=== PATIENT | male | born 1950 | race Caucasian/White ===

== ENCOUNTER 2021-07-24 09:25 | Outpatient (CLI) | payer MEDICARE, SELFPAY ==
[2021-07-24 09:50] VITALS: BP 163/95; PULSE 71; RESP 20; TEMP 36.3; O2SAT 95
--- NOTE | 2021-07-24 10:49 | DI.RAD_ITS ---
Exam(s) XR PAIN CLINIC LUMBAR SP 2V EXAM: XR PAIN CLINIC LUMBAR SP 2V CLINICAL HISTORY: Dx: Lumbar Radiculopathy TECHNIQUE: 2D and realtime digital imaging was performed. COMPARISON: No exams were available for comparison FINDINGS: C-arm fluoroscopy was utilized by Dr. Florence during apparent lumbar epidural injection. Hard copy show injection via catheter at the L5-S1. IMPRESSION: RADIATION DOSE DELIVERED: dee Ortiz=16.0 mGy
--- NOTE | 2021-07-24 10:54 | PDOC.PAIN_ITS ---
Pain Clinic Procedure Note Procedure Note Procedure Note: CAUDAL EPIDURAL STEROID WITH CATHETER INJECTION PROCEDURE NOTE COMMENTS: I saw treated him at [facility] for many years. He has done exceedingly well with caudal ESIs. These are keeping him active and working. His pain VAS preprocedure is 6/10. DX: Lumbosacral radiculopathy Jamari Powers has been referred to the [facility] for lumbar epidural steroid injection. Patient was greeted by the nurse who verified the patient?s name and .? Patient was then taken to the fluoroscopy suite. The patient was interviewed and the medical record was reviewed.? There were no medical, pharmacologic, radiographic, or other structural contraindications to attempting fluoroscopically guided caudal epidural steroid injection. Risks and expected side effects as well as potential benefits of the procedure were reviewed and voiced concerns addressed.? The patient consent form was signed.? Standard time-out procedure was performed. The patient was placed in the prone position on the fluoroscopy table and automated blood pressure cuff, pulse oximeter, and 3 lead EKG was applied.? The skin entry point for entering/approaching the sacral hiatus was marked.? Following thorough chlorhexadine preparation of the skin and draping and 1% lidocaine infiltration of the skin entry point and subcutaneous tissues, a 17 gauge Touhy needle was placed under fluoroscopic guidance through the sacral hiatus.? Needle tip placement and depth were aided and confirmed by fluoroscopy. There was no paresthesia or return of blood or CSF through the needle. A 19G Arrow spinal catheter was threaded to the L5 height and 1 cc's of Omnipaque 240 was injected with clear epidural spread confirmed with fluoroscopy.? Aspiration was performed with no resulting blood or clear fluid. One 1 cc of depomedrol (80 mg/cc) was injected.? This was followed by 2 cc of 1% Lidocaine to flush the catheter.?There was not any unusual discomfort expressed.? The needle and catheter were removed together without difficulty. Vital signs were stable throughout the procedure and were as recorded in nursing records.? Follow up plans and appointments were discussed.? Post procedure instruction was given as documented in nursing records and having met discharge criteria and was discharged from the [facility]. Post-procedure VAS = 2/10 Jan Florence DO, MPH [facility]-Pain Management [facility]
[2021-07-24] MEDS: methylPREDNISolone ACETATE 80 MG/ML VIAL IJ (10:56)
[2021-07-24] MEDS: Omnipaque 240 MG/ML 50 ML BTL IJ (10:56)
[2021-07-24 11:03] VITALS: BP 138/78; PULSE 80; RESP 12; O2SAT 96
== END 2021-07-24 09:26 | disposition home or self-care (01) ==
LOC: PC 09:28
PROVIDERS: Visit Provider Preventive Medicine Occupational Medicine
DX: M54.17 Radiculopathy, lumbosacral region (principal)
CPT/HCPCS: 62323; 72100; J1040; Q9967

== ENCOUNTER 2021-12-05 11:20 | Outpatient (CLI) | payer MEDICARE, SELFPAY ==
--- NOTE | 2021-12-05 06:00 | DI.RAD_ITS ---
Exam(s) XR PAIN CLINIC LUMBAR SP 2V EXAM: XR PAIN CLINIC LUMBAR SP 2V CLINICAL HISTORY: Dx: Lumbar Radiculopathy TECHNIQUE: 2D and realtime digital imaging was performed. Radiologist not present. CONTRAST MATERIAL: None. COMPARISON: No exams were available for comparison FINDINGS: Fluoroscopy was provided for pain management therapy. Please refer to procedure report or details. Cumulative dose: Ka,r=8.51 mGy IMPRESSION: RADIATION DOSE DELIVERED:
[2021-12-05 11:44] VITALS: BP 120/78; PULSE 59; RESP 18; TEMP 36.9; O2SAT 100
--- NOTE | 2021-12-05 12:30 | PDOC.PAIN_ITS ---
Pain Clinic Procedure Note Procedure Note Procedure Note: CAUDAL EPIDURAL STEROID WITH CATHETER INJECTION PROCEDURE NOTE COMMENTS: He has done very well with this procedure in the past. It has allowed him to work and stay active. His pre-procedure pain VAS was 8/10. Dx: Lumbosacral radiculopathy Jamari Powers has been referred to the [facility] for lumbar epidural steroid injection. Patient was greeted by the nurse who verified the patient?s name and .? Ruth ent was then taken to the fluoroscopy suite. The patient was interviewed and the medical record was reviewed.? There were no medical, pharmacologic, radiographic, or other structural contraindications to attempting fluoroscopically guided caudal epidural steroid injection. Risks and expected side effects as well as potential benefits of the procedure were reviewed and voiced concerns addressed.? The patient consent form was signed.? Standard time-out procedure was performed. The patient was placed in the prone position on the fluoroscopy table and automated blood pressure cuff, pulse oximeter, and 3 lead EKG was applied.? The skin entry point for entering/approaching the sacral hiatus was marked.? Following thorough chlorhexadine preparation of the skin and draping and 1% lidocaine infiltration of the skin entry point and subcutaneous tissues, a 17 gauge Touhy needle was placed under fluoroscopic guidance through the sacral hiatus.? Needle tip placement and depth were aided and confirmed by fluoroscopy. There was no paresthesia or return of blood or CSF through the needle. A 19G Arrow spinal catheter was threaded to the L4 height and 1 cc's of Omnipaque 240 was injected with clear epidural spread confirmed with fluoroscopy.? Aspiration was performed with no resulting blood or clear fluid. One cc of depomedrol (80 mg/cc) was injected.? This was followed by 2 cc of 1% Lidocaine to flush the catheter.?There was not any unusual discomfort expressed.? The needle and catheter were removed together without difficulty. Vital signs were stable throughout the procedure and were as recorded in nursing records.? Follow up plans and appointments were discussed.? Post procedure instruction was given as documented in nursing records and having met discharge criteria and was discharged from the [facility]. Post-procedure pain VAS was 3/10. Jan Florence DO, MPH [facility]-Pain Management [facility]
[2021-12-05 12:33] VITALS: BP 139/67; PULSE 66; RESP 16; O2SAT 99
[2021-12-05] MEDS: Omnipaque 240 MG/ML 50 ML BTL IJ (12:41)
[2021-12-05] MEDS: methylPREDNISolone ACETATE 80 MG/ML VIAL IJ (12:41)
== END 2021-12-05 11:21 | disposition home or self-care (01) ==
LOC: PC 11:22
PROVIDERS: Visit Provider Preventive Medicine Occupational Medicine
DX: M54.17 Radiculopathy, lumbosacral region (principal)
CPT/HCPCS: 62323; 72100; J1040; Q9967

== ENCOUNTER 2022-04-03 11:27 | Outpatient (CLI) | payer MEDICARE, SELFPAY ==
--- NOTE | 2022-04-03 06:00 | DI.RAD_ITS ---
Exam(s) XR PAIN CLINIC LUMBAR SP 2V EXAM: XR PAIN CLINIC LUMBAR SP 2V CLINICAL HISTORY: Dx: Lumbar Radiculopathy TECHNIQUE: 2D and realtime digital imaging was performed. COMPARISON: No exams were available for comparison FINDINGS: C-arm fluoroscopy was utilized Dr. Florence during reported epidural injection. Hard copy shows injectio n at what appears to be L5-S1 level. IMPRESSION: RADIATION DOSE DELIVERED: dee Ortiz=12.48 mGy
[2022-04-03 12:24] VITALS: BP 130/88; PULSE 66; RESP 20; TEMP 36.8; O2SAT 97
--- NOTE | 2022-04-03 13:23 | PDOC.PAIN_ITS ---
Date of service: 04/03/22 Time of Service: 13:23 Pain Clinic Procedure Note Procedure Note Procedure Note: CAUDAL EPIDURAL STEROID WITH CATHETER INJECTION PROCEDURE NOTE COMMENTS: He has had this procedure numerous times in the past. He gets 3-4 months of relief each time and this allows him to continue working. Pre- procedure pain VAS was 6/10. Dx: Lumbosacral radiculopathy. Jamari Powers has been referred to the [facility] Management [facility] for lumbar epidural steroid injection. Patient was greeted by the nurse who verified the patient?s name and .? Patient was then taken to the fluoroscopy suite. The patient was interviewed and the medical record was reviewed.? There were no medical, pharmacologic, radiographic, or other structural contraindications to attempting fluoroscopically guided caudal epidural steroid injection. Risks and expected side effects as well as potential benefits of the procedure were reviewed and voiced concerns addressed.? The patient consent form was signed.? Standard time-out procedure was performed. The patient was placed in the prone position on the fluoroscopy table and automated blood pressure cuff, pulse oximeter, and 3 lead EKG was applied.? The skin entry point for entering/approaching the sacral hiatus was marked.? Following thorough chlorhexadine preparation of the skin and draping and 1% lidocaine infiltration of the skin entry point and subcutaneous tissues, a 17 gauge Touhy needle was placed under fluoroscopic guidance through the sacral hiatus.? Needle tip placement and depth were aided and confirmed by fluoroscopy. There was no paresthesia or return of blood or CSF through the needle. A 19G Arrow spinal catheter was threaded to the L5 height and 1 cc's of Omnipaque 240 was injected with clear epidural spread confirmed with fluoroscopy.? Aspiration was performed with no resulting blood or clear fluid. One cc of depomedrol (80 mg/cc) was injected.? This was followed by 2 cc of 1% Lidocaine to flush the catheter.?There was not any unusual discomfort expressed.? The needle and catheter were removed together without difficulty. Vital signs were stable throughout the procedure and were as recorded in nursing records.? Follow up plans and appointments were discussed.? Post procedure instruction was given as documented in nursing records and having met discharge criteria and was discharged from the [facility] Management [facility]. Post-procedure pain VAS = 3/10. Jan Florence DO, MPH [facility]-Pain Management [facility]
[2022-04-03] MEDS: methylPREDNISolone ACETATE 80 MG/ML VIAL IJ (13:25)
[2022-04-03] MEDS: Omnipaque 240 MG/ML 50 ML BTL IJ (13:25)
[2022-04-03 13:26] VITALS: BP 139/77; PULSE 65; RESP 15; O2SAT 98
== END 2022-04-03 11:28 | disposition home or self-care (01) ==
LOC: PC 11:27
PROVIDERS: Visit Provider Preventive Medicine Occupational Medicine
DX: M54.17 Radiculopathy, lumbosacral region (principal); M54.50 Low back pain, unspecified; M47.817 Spondylosis without myelopathy or radiculopathy, lumbosacral region
CPT/HCPCS: 62323; 72100; J1040; Q9967

== ENCOUNTER 2022-08-21 09:12 | Outpatient (CLI) | payer MEDICARE, SELFPAY ==
[2022-08-21 09:23] VITALS: BP 147/83; PULSE 63; RESP 20; TEMP 36.4; O2SAT 98
--- NOTE | 2022-08-21 10:01 | DI.RAD_ITS ---
Exam(s) XR PAIN CLINIC LUMBAR SP 2V EXAM: XR PAIN CLINIC LUMBAR SP 2V CLINICAL HISTORY: DX: Lumbar Radiculopathy TECHNIQUE: 2D and realtime digital imaging was performed. Radiologist not present. CONTRAST MATERIAL: None. COMPARISON: No exams were available for comparison FINDINGS: Fluoroscopy was provided for pain management therapy. Please refer to procedure report or details. Radiation Exposure Index: Ka,r=12.95 mGy IMPRESSION: As above. RADIATION DOSE DELIVERED:
--- NOTE | 2022-08-21 10:02 | PDOC.PAIN_ITS ---
Date of service: 08/21/22 Time of Service: 10:13 Pain Clinic Procedure Note Procedure Note Procedure Note: CAUDAL EPIDURAL STEROID WITH CATHETER INJECTION PROCEDURE NOTE COMMENTS: He had >70% pain relief with his last caudal KYLE from March 2022. Pre-procedure pain VAS was 7/10 Dx: Lumbosacral radiculopathy Jamari Powers has been referred to the [facility] for lumbar epidural steroid injection. Patient was greeted by the nurse who verified the patient?s name and .? Patient was then taken to the fluoroscopy suite. The patient was interviewed and the medical record was reviewed.? There were no medical, pharmacologic, radiographic, or other structural contraindications to attempting fluoroscopically guided caudal epidural steroid injection. Risks and expected side effects as well as potential benefits of the procedure were reviewed and voiced concerns addressed.? The patient consent form was signed.? Standard time-out procedure was performed. The patient was placed in the prone position on the fluoroscopy table and automated blood pressure cuff, pulse oximeter, and 3 lead EKG was applied.? The skin entry point for entering/approaching the sacral hiatus was marked.? Following thorough chlorhexadine preparation of the skin and draping and 1% lidocaine infiltration of the skin entry point and subcutaneous tissues, a 17 gauge Touhy needle was placed under fluoroscopic guidance through the sacral hiatus.? Needle tip placement and depth were aided and confirmed by fluoroscopy. There was no paresthesia or return of blood or CSF through the needle. A 19G Arrow spinal catheter was threaded to the L5 height and 1 cc's of Omnipaque 240 was injected with clear epidural spread confirmed with fluoroscopy.? Aspiration was performed with no resulting blood or clear fluid. One cc of depomedrol (80 mg/cc) was injected.? This was followed by 2 cc of 1% Lidocaine to flush the catheter.?There was not any unusual discomfort expressed.? The needle and catheter were removed together without difficulty. Vital signs were stable throughout the procedure and were as recorded in nursing records.? Follow up plans and appointments were discussed.? Post procedure instruction was given as documented in nursing records and having met discharge criteria and was discharged from the [facility]. Post-procedure pain VAS was 3/10. If he obtains at least 50% pain relief and/or 50% functional improvement for 3 months, he can repeat this procedure. This procedure can be completed up to 4 times per 12 months. Jan Florence DO, MPH [facility]-Pain Management [facility] for Pain Management
[2022-08-21 10:04] VITALS: BP 154/80; PULSE 67; RESP 17; O2SAT 100
[2022-08-21] MEDS: methylPREDNISolone ACETATE 80 MG/ML VIAL IJ (10:23)
[2022-08-21] MEDS: Omnipaque 240 MG/ML 50 ML BTL IJ (10:24)
== END 2022-08-21 09:13 | disposition home or self-care (01) ==
LOC: PC 09:12
PROVIDERS: Visit Provider Preventive Medicine Occupational Medicine
DX: M54.17 Radiculopathy, lumbosacral region (principal); M54.50 Low back pain, unspecified
CPT/HCPCS: 62323; 72100; J1040; Q9967

== ENCOUNTER 2022-12-29 10:41 | Outpatient (CLI) | payer MEDICARE, SELFPAY ==
[2022-12-29 10:55] VITALS: BP 146/78; PULSE 52; RESP 20; TEMP 36.4; O2SAT 96
--- NOTE | 2022-12-29 11:41 | DI.RAD_ITS ---
Exam(s) XR PAIN CLINIC LUMBAR SP 2V EXAM: XR PAIN CLINIC LUMBAR SP 2V CLINICAL HISTORY: DX: Lumbar Radiculopathy. TECHNIQUE: Fluoroscopy was provided for the referring physician for guidance with performing pain cl inic injection procedure. COMPARISON: No exams were available for comparison FINDINGS: Please see procedure note for details. Fluoro time: 12.32 seconds RADIATION DOSE DELIVERED: Ka,r=38.3 mGy
[2022-12-29 11:42] VITALS: BP 153/73; PULSE 66; RESP 15; O2SAT 97
[2022-12-29] MEDS: Omnipaque 240 MG/ML 50 ML BTL IJ (11:42)
[2022-12-29] MEDS: methylPREDNISolone ACETATE 80 MG/ML VIAL IJ (11:42)
--- NOTE | 2022-12-29 13:58 | PDOC.PAIN_ITS ---
Date of service: 12/29/22 Time of Service: 13:58 Pain Managment Procedure Note Procedure Note Procedure Note: PROCEDURE NOTE CAUDAL EPIDURAL STEROID INJECTION Date of Service: December 29, 2022 Patient:Jamari Mckeon? Provider:? Blair Florence DO, MPH Jamari Powers has been referred to the [facility] for caudal epidural steroid injection.? Pre-operative diagnosis: Lumbosacral Radiculopathy Post-operative diagnosis: Same Pre-Procedure Pain: VAS= 7/10. COMMENTS: He had >50% pain relief for >3 months with his last caudal KYLE on 08/21/2022. Maydawas interviewed and the medical record was reviewed.? There were no medical, pharmacologic, radiographic or other structural contraindications to attempting fluoroscopically guided epidural steroid injection.? Risks and expected side effects as well as potential benefit of the procedure were reviewed with Mayda, and the patient's voiced concerns were addressed.? The printed consent form was signed.? Standard time-out procedure was performed. Mayda was placed in the prone position on the fluoroscopy table and automated blood pressure cuff and pulse oximeter applied.? The skin entry point for entering/approaching the epidural space by a caudal approach through the sacral hiatus ed identified with surgical skin marking.? Following thorough chlorhexidine preparation of the skin and draping and 1% lidocaine infiltration of the skin entry point and subcutaneous tissues, a 17 gauge Touhy needle was placed under fluoroscopic guidance? into the epidural space. Needle tip placement and depth were aided and confirmed by fluoroscopy in the lateral and AP position. There was no paresthesia or return of blood or CSF through the needle. 1 cc of Omnipaque 240 was injected with clear epidural spread confirmed with fluoroscopy. An Arrow 19G radio-opaque epidural catheter was advanced into the epidural space to the L5-S1 level and 2 cc of Omnipaque 240 was injected with clear epidural spread. 80 mg of Depo-Medrol was? injected. There was no unusual discomfort expressed by Jamari. The needle and catheter were then flushed with 1 cc of 1% Lidocaine and they were removed together without difficulty (49 cc of Omnipaque was wasted). Jamari was observed and was without hemodynamic, neurologic, or allergic reactions.? Fluoroscopic images were digitally archived. Jamari's vital signs were stable throughout the procedure and were as recorded in the docflowsheet by the nursing staff.? If given, dosages of intravenous drugs for anxiolysis and analgesia were documented in MAR. Follow up plans and appointments were discussed with Jamari.? Post procedure instruction was given as documented in nursing documentation and having met discharge criteria, Jamari was discharged from the [facility]. ? COMMENTS: No apparent complications.? Post-procedure pain: VAS= 0/10. If the patient receives at least 50% improvement in pain and/or function for at least 3 months, this procedure can be repeated. I personally completed the entire procedure. BLAIR FLORENCE DO, MPH [facility] - Subspecialty board certification in Pain Medicine [facility]-[place] [facility]
== END 2022-12-29 10:42 | disposition home or self-care (01) ==
LOC: PC 10:42
PROVIDERS: Visit Provider Preventive Medicine Occupational Medicine
DX: M54.50 Low back pain, unspecified (principal); M54.17 Radiculopathy, lumbosacral region
CPT/HCPCS: 62323; 72100; J1040; Q9967

== ENCOUNTER → 2022-12-29 13:46 | Outpatient (CLI) | payer MEDICARE, SELFPAY ==
--- NOTE | 2022-12-29 12:31 | DI.RAD_ITS ---
Exam(s) XR CERVICAL SPINE COMP 4-5V EXAM: XR CERVICAL SPINE COMP 4-5V CLINICAL HISTORY: NECK PAIN, CERVICALGIA-M54.2. TECHNIQUE: 2D digital imaging was performed. COMPARISON: No exams were available for comparison FINDINGS: BONES: No fracture or destructive lesion. Vertebral bodies heights are maintained. Facet degenerat clarence changes. Right neural foramen suboptimally profiled. Mild multilevel neural foraminal narrowing suspected. DISKS: The C2 3 disc space is maintained. There is moderate to severe narrowing of the C3-4 through C5-6 disc spaces. Moderate endplate osteophytes. Severe narrowing at the C6-7 disc space. Prominen t endplate osteophytes. ALIGNMENT: Cervical spinal alignment is within normal limits. The odontoid and atlantoaxial articulat ions are normal. SOFT TISSUE: Airway normal. The lung apices are clear. IMPRESSION: Degenerative changes, greatest at C6-7. DATA REPOSITORY: RADIATION DOSE DELIVERED:
== END ==
PROVIDERS: Visit Provider Preventive Medicine Occupational Medicine
DX: M47.12 Other spondylosis with myelopathy, cervical region (principal)
CPT/HCPCS: 72050

== ENCOUNTER 2023-04-15 10:39 | Outpatient (CLI) | payer MEDICARE, SELFPAY ==
--- NOTE | 2023-04-15 06:00 | DI.RAD_ITS ---
Exam(s) XR PAIN CLINIC LUMBAR SP 2V EXAM: XR PAIN CLINIC LUMBAR SP 2V CLINICAL HISTORY: Dx: Lumbar Radiculopathy TECHNIQUE: 2D and realtime digital imaging was performed. CONTRAST MATERIAL: Refer to procedure report. COMPARISON: No exams were available for comparison FINDINGS: Fluoroscopy was provided for Dr. Florence during the performance of a caudal epidural steroid injection. Please refer to the procedure report for complete details. Ka,r=9.03 mGy IMPRESSION:
[2023-04-15 11:00] VITALS: BP 148/77; PULSE 56; RESP 14; TEMP 36.7; O2SAT 94
--- NOTE | 2023-04-15 11:43 | PDOC.PAIN_ITS ---
Date of service: 04/15/23 Time of Service: 11:43 Pain Managment Procedure Note Procedure Note Procedure Note: PROCEDURE NOTE CAUDAL EPIDURAL STEROID INJECTION Date of Service: April 15, 2023 Patient:Jamari Mckeon? Provider:? Blair Florence DO, MPH Jamari Powers has been referred to the [facility] for caudal epidural steroid injection.? Pre-operative diagnosis: Lumbosacral Radiculopathy Post-operative diagnosis: Same Pre-Procedure Pain: VAS= 8/10. COMMENTS: He had >3 months of relief with his last caudal KYLE in December 2022. Maydawas interviewed and the medical record was reviewed.? There were no medical, pharmacologic, radiographic or other structural contraindications to attempting fluoroscopically guided epidural steroid injection.? Risks and expected side effects as well as potential benefit of the procedure were reviewed with Mayda, and the patient's voiced concerns were addressed.? The printed consent form was signed.? Standard time-out procedure was performed. Mayda was placed in the prone position on the fluoroscopy table and automated blood pressure cuff and pulse oximeter applied.? The skin entry point for entering/approaching the epidural space by a caudal approach through the sacral hiatus ed identified with surgical skin marking.? Following thorough chlorhexidine preparation of the skin and draping and 1% lidocaine infiltration of the skin entry point and subcutaneous tissues, a 17 gauge Touhy needle was placed under fluoroscopic guidance? into the epidural space. Needle tip placement and depth were aided and confirmed by fluoroscopy in the lateral and AP position. There was no paresthesia or return of blood or CSF through the needle. 1 cc of Omnipaque 240 was injected with clear epidural spread confirmed with fluoroscopy. An Arrow 19G radio-opaque epidural catheter was advanced into the epidural space to the L5-S1 level and 2 cc of Omnipaque 240 was injected with clear epidural spread. 80 mg of Depo-Medrol was? injected. There was no unusual discomfort expressed by Jamari. The needle and catheter were then flushed with 1 cc of 1% Lidocaine and they were removed together without difficulty (49 cc of Omnipaque was wasted). Jamari was observed and was without hemodynamic, neurologic, or allergic reactions.? Fluoroscopic images were digitally archived. Jamari's vital signs were stable throughout the procedure and were as recorded in the docflowsheet by the nursing staff.? If given, dosages of intravenous drugs for anxiolysis and analgesia were documented in MAR. Follow up plans and appointments were discussed with Jamari.? Post procedure instruction was given as documented in nursing documentation and having met discharge criteria, Jamari was discharged from the [facility]. ? COMMENTS: No apparent complications.? Post-procedure pain: VAS= 0/10. If the patient receives at least 50% improvement in pain and/or function for at least 3 months, this procedure can be repeated. I personally completed the entire procedure. BLAIR FLORENCE DO, MPH [employer] - Subspecialty board certification in Pain Medicine [facility]-Center for Pain Management
[2023-04-15 12:00] VITALS: BP 136/93; PULSE 61; RESP 20; O2SAT 100
[2023-04-15] MEDS: methylPREDNISolone ACETATE 80 MG/ML VIAL IJ (12:06)
[2023-04-15] MEDS: Omnipaque 240 MG/ML 50 ML BTL IJ (12:07)
== END 2023-04-15 10:40 | disposition home or self-care (01) ==
LOC: PC 10:48
PROVIDERS: Visit Provider Preventive Medicine Occupational Medicine
DX: M54.50 Low back pain, unspecified (principal); M47.817 Spondylosis without myelopathy or radiculopathy, lumbosacral region
CPT/HCPCS: 00123; 62323; 72100; J1040; Q9967

== ENCOUNTER 2023-08-12 11:26 | Outpatient (CLI) | payer MEDICARE, SELFPAY ==
[2023-08-12 12:06] VITALS: BP 144/88; PULSE 57; RESP 20; TEMP 36.6; O2SAT 97
--- NOTE | 2023-08-12 12:52 | PDOC.PAIN_ITS ---
Date of service: 08/12/23 Time of Service: 12:52 Pain Managment Procedure Note Procedure Note Procedure Note: PROCEDURE NOTE CAUDAL EPIDURAL STEROID INJECTION Date of Service: August 12, 2023 Patient:Jamari Mckeon? Provider:? Blair Florence DO, MPH Jamari Powers has been referred to the Pain Management Center for caudal epidural steroid injection.? Pre-operative diagnosis: Lumbosacral Radiculopathy Post-operative diagnosis: Same Pre-Procedure Pain: VAS= 7/10. COMMENTS: He had >3 months of >50% pain relief with his last caudal KYLE (04/15/23). Maydawas interviewed and the medical record was reviewed.? There were no medical, pharmacologic, radiographic or other structural contraindications to attempting fluoroscopically guided epidural steroid injection.? Risks and expected side effects as well as potential benefit of the procedure were reviewed with Mayda, and the patient's voiced concerns were addressed.? The printed consent form was signed.? Standard time-out procedure was performed. Mayda was placed in the prone position on the fluoroscopy table and automated blood pressure cuff and pulse oximeter applied.? The skin entry point for entering/approaching the epidural space by a caudal approach through the sacral hiatus ed identified with surgical skin marking.? Following thorough chlorhexidine preparation of the skin and draping and 1% lidocaine infiltration of the skin entry point and subcutaneous tissues, a 17 gauge Touhy needle was placed under fluoroscopic guidance? into the epidural space. Needle tip placement and depth were aided and confirmed by fluoroscopy in the lateral and AP position. There was no paresthesia or return of blood or CSF through the needle. 1 cc of Omnipaque 240 was injected with clear epidural spread confirmed with fluoroscopy. An Arrow 19G radio-opaque epidural catheter was advanced into the epidural space to the L5-S1 level and 2 cc of Omnipaque 240 was injected with clear epidural spread. 80 mg of Depo-Medrol was? injected. There was no unusual discomfort expressed by Jamari. The needle and catheter were then flushed with 1 cc of 1% Lidocaine and they were removed together without difficulty (49 cc of Omnipaque was wasted). Jamari was observed and was without hemodynamic, neurologic, or allergic reactions.? Fluoroscopic images were digitally archived. Jamari's vital signs were stable throughout the procedure and were as recorded in the docflowsheet by the nursing staff.? If given, dosages of intravenous drugs for anxiolysis and analgesia were documented in MAR. Follow up plans and appointments were discussed with Jamari.? Post procedure instruction was given as documented in nursing documentation and having met discharge criteria, Jamari was discharged from the [facility]. ? COMMENTS: No apparent complications.? Post-procedure pain: VAS= 0/10. If the patient receives at least 50% improvement in pain and/or function for at least 3 months, this procedure can be repeated. I personally completed the entire procedure. BLAIR FLORENCE DO, MPH [employer] - Subspecialty board certification in Pain Medicine [facility]
--- NOTE | 2023-08-12 12:55 | DI.RAD_ITS ---
Exam(s) XR PAIN CLINIC LUMBAR SP 2V EXAM: XR PAIN CLINIC LUMBAR SP 2V CLINICAL HISTORY: DX: Lumbar radiculopathy. TECHNIQUE: Fluoroscopy was provided for the referring physician for guidance with performing pain cl inic injection procedure. COMPARISON: No exams were available for comparison FINDINGS: Please see procedure note for details. Fluoro time: 46.5 seconds RADIATION DOSE DELIVERED: Ka,r=19.38 mGy
[2023-08-12 12:56] VITALS: BP 144/90; PULSE 58; RESP 19; O2SAT 98
[2023-08-12] MEDS: Omnipaque 240 MG/ML 50 ML BTL IJ (12:57)
[2023-08-12] MEDS: Epidural Tray 1 EACH MC (12:57)
[2023-08-12] MEDS: methylPREDNISolone ACETATE 80 MG/ML VIAL IJ (12:58)
== END 2023-08-12 11:27 | disposition home or self-care (01) ==
LOC: PC 11:27
PROVIDERS: Visit Provider Preventive Medicine Occupational Medicine
DX: M54.50 Low back pain, unspecified (principal); M54.17 Radiculopathy, lumbosacral region
CPT/HCPCS: 00123; 62323; 72100; J1040; Q9967

== ENCOUNTER 2023-12-09 10:16 | Outpatient (CLI) | payer MEDICARE, SELFPAY ==
[2023-12-09 10:16] VITALS: BP 139/81; PULSE 59; RESP 20; TEMP 36.7; O2SAT 97
[2023-12-09 11:02] VITALS: PULSE 56; RESP 16; O2SAT 98
[2023-12-09 11:10] VITALS: PULSE 53; RESP 13; O2SAT 100
[2023-12-09 11:13] VITALS: BP 133/72; PULSE 52; O2SAT 99
--- NOTE | 2023-12-09 11:14 | DI.RAD_ITS ---
Exam(s) XR PAIN CLINIC LUMBAR SP 2V EXAM: XR PAIN CLINIC LUMBAR SP 2V CLINICAL HISTORY: Lumbar Radiculopathy TECHNIQUE: 2D and realtime digital imaging was performed. CONTRAST MATERIAL: Refer to procedure report. COMPARISON: No exams were available for comparison FINDINGS: Fluoroscopy was provided for Dr. Florence during the performance of a caudal epidural steroid injection. Please refer to the procedure report for complete details. Ka,r=11.7 mGy IMPRESSION: RADIATION DOSE DELIVERED: 0.0 0.0 0
[2023-12-09] MEDS: Nerve Block Tray 1 EACH MC ×2 (11:20→11:22)
[2023-12-09] MEDS: Omnipaque 240 MG/ML 50 ML BTL IJ (11:21)
[2023-12-09] MEDS: methylPREDNISolone ACETATE 80 MG/ML VIAL IJ (11:21)
--- NOTE | 2023-12-10 08:47 | PDOC.PAIN ---
Date of service: 12/09/23 Time of Service: 11:30 Pain Managment Procedure Note Procedure Note Procedure Note: PROCEDURE NOTE CAUDAL EPIDURAL STEROID INJECTION Date of Service: December 09, 2023 Patient:Jamari Mckeon? Provider:? Blair Florence DO, MPH Jamari Powers has been [facility] for caudal epidural steroid injection.? Pre-operative diagnosis: Lumbosacral Radiculopathy Post-operative diagnosis: Same Pre-Procedure Pain: VAS= 7/10. COMMENTS: Had had >3 months of 50% pain improvement with his last caudal KYLE on 08/12/23 Maydawas interviewed and the medical record was reviewed.? There were no medical, pharmacologic, radiographic or other structural contraindications to attempting fluoroscopically guided epidural steroid injection.? Risks and expected side effects as well as potential benefit of the procedure were reviewed with Mayda, and the patient's voiced concerns were addressed.? The printed consent form was signed.? Standard time-out procedure was performed. Mayda was placed in the prone position on the fluoroscopy table and automated blood pressure cuff and pulse oximeter applied.? The skin entry point for entering/approaching the epidural space by a caudal approach through the sacral hiatus ed identified with surgical skin marking.? Following thorough chlorhexidine preparation of the skin and draping and 1% lidocaine infiltration of the skin entry point and subcutaneous tissues, a 17 gauge Touhy needle was placed under fluoroscopic guidance? into the epidural space. Needle tip placement and depth were aided and confirmed by fluoroscopy in the lateral and AP position. There was no paresthesia or return of blood or CSF through the needle. 1 cc of Omnipaque 240 was injected with clear epidural spread confirmed with fluoroscopy. An Arrow 19G radio-opaque epidural catheter was advanced into the epidural space to the L4 level and 2 cc of Omnipaque 240 was injected with clear epidural spread. 80 mg of Depo-Medrol was? injected. There was no unusual discomfort expressed by Jamari. The needle and catheter were then flushed with 1 cc of 1% Lidocaine and they were removed together without difficulty (49 cc of Omnipaque was wasted). Jamari was observed and was without hemodynamic, neurologic, or allergic reactions.? Fluoroscopic images were digitally archived. Jamari's vital signs were stable throughout the procedure and were as recorded in the docflowsheet by the nursing staff.? If given, dosages of intravenous drugs for anxiolysis and analgesia were documented in MAR. Follow up plans and appointments were discussed with Jamari.? Post procedure instruction was given as documented in nursing documentation and having met discharge criteria, [facility]. ? COMMENTS: No apparent complications.? Post-procedure pain: VAS= 1/10. If the patient receives at least 50% improvement in pain and/or function for at least 3 months, this procedure can be repeated. I personally completed the entire procedure. BLAIR FLORENCE DO, MPH [employer] - Subspecialty board certification in Pain Medicine [facility]
== END 2023-12-09 10:17 | disposition home or self-care (01) ==
LOC: PC 10:17
PROVIDERS: PCP Obstetrics & Gynecology Reproductive Endocrinology; Visit Provider Preventive Medicine Occupational Medicine
DX: M54.17 Radiculopathy, lumbosacral region (principal); M54.50 Low back pain, unspecified
CPT/HCPCS: 62323; 72100; J1010; Q9967

== ENCOUNTER 2024-06-23 11:31 | Outpatient (CLI) | payer MEDICARE, SELFPAY ==
[2024-06-23 11:39] VITALS: BP 137/65; PULSE 59; RESP 20; TEMP 36.7; O2SAT 100
[2024-06-23 12:06] VITALS: PULSE 60; PULSE 62; O2SAT 96
[2024-06-23 12:08] VITALS: BP 141/59; PULSE 55; PULSE 59; RESP 18; O2SAT 95
[2024-06-23 12:10] VITALS: PULSE 58; RESP 16; O2SAT 97
[2024-06-23 12:15] VITALS: BP 132/57; PULSE 54; PULSE 57; RESP 17; O2SAT 96
[2024-06-23 12:20] VITALS: PULSE 56; PULSE 57; RESP 21; O2SAT 94
--- NOTE | 2024-06-23 12:24 | PDOC.PAIN_ITS ---
Date of service: 06/23/24 Time of Service: 12:24 Pain Managment Procedure Note Procedure Note Procedure Note: PROCEDURE NOTE CAUDAL EPIDURAL STEROID INJECTION Date of Service: June 23, 2024 Patient:Jamari Mckeon? Provider:? Blair Folrence DO, MPH Jamari Powers has been referred to the [facility] for caudal epidural steroid injection.? Pre-operative diagnosis: Lumbosacral Radiculopathy, ICD-10 M54.17 Post-operative diagnosis: Same Pre-Procedure Pain: VAS= 10/10. COMMENTS: He had >4 months of >50% pain relief with his last caudal KYLE. He was hospitalized for abdominal issues in the fall and he has gotten a lot better from that here over the past 6 weeks. Maydawas interviewed and the medical record was reviewed.? There were no medical, pharmacologic, radiographic or other structural contraindications to attempting fluoroscopically guided epidural steroid injection.? Risks and expected side effects as well as potential benefit of the procedure were reviewed with Mayda, and the patient's voiced concerns were addressed.? The printed consent form was signed.? Standard time-out procedure was performed. Mayda was placed in the prone position on the fluoroscopy table and automated blood pressure cuff and pulse oximeter applied.? The skin entry point for entering/approaching the epidural space by a caudal approach through the sacral hiatus ed identified with surgical skin marking.? Following thorough chlorhexidine preparation of the skin and draping and 1% lidocaine infiltration of the skin entry point and subcutaneous tissues, a 17 gauge Touhy needle was placed under fluoroscopic guidance? into the epidural space. Needle tip placement and depth were aided and confirmed by fluoroscopy in the lateral and AP position. There was no paresthesia or return of blood or CSF through the needle. 1 cc of Omnipaque 240 was injected with clear epidural spread confirmed with fluoroscopy. An Arrow 19G radio-opaque epidural catheter was advanced into the epidural space to the L4-L5 level on the left and 2 cc of Omnipaque 240 was injected with clear epidural spread. 80 mg of Depo-Medrol was? injected. There was no unusual discomfort expressed by Jamari. The needle and catheter were then flushed with 1 cc of 1% Lidocaine and they were removed together without difficulty (49 cc of Omnipaque was wasted). Jamari was observed and was without hemodynamic, neurologic, or allergic reactions.? Fluoroscopic images were digitally archived. Jamari's vital signs were stable throughout the procedure and were as recorded in the docflowsheet by the nursing staff.? If given, dosages of intravenous drugs for anxiolysis and analgesia were documented in MAR. Follow up plans and appointments were discussed with Jamari.? Post procedure instruction was given as documented in nursing documentation and having met discharge criteria, Jamari was [facility] from the [facility]. ? COMMENTS: No apparent complications.? Post-procedure pain: VAS= 0/10. If the patient receives at least 50% improvement in pain and/or function for at least 3 months, this procedure can be repeated. I personally completed the entire procedure. BLAIR FLORENCE DO, MPH [employer] - Subspecialty board certification in Pain Medicine [facility]
--- NOTE | 2024-06-23 12:27 | DI.RAD_ITS ---
Exam(s) XR PAIN CLINIC LUMBAR SP 2V EXAM: XR PAIN CLINIC LUMBAR SP 2V CLINICAL HISTORY: Dx: Lumbar Radiculopathy TECHNIQUE: 2D and realtime digital imaging was performed. CONTRAST MATERIAL: Refer to procedure report. COMPARISON: No exams were available for comparison FINDINGS: Fluoroscopy was provided for Dr. Florence during the performance of a caudal epidural steroid injection. Please refer to the procedure report for complete details. Ka,r=7.10 mGy IMPRESSION: RADIATION DOSE DELIVERED: 0.0 0.0 0
[2024-06-23] MEDS: Nerve Block Tray 1 EACH MC (12:34)
[2024-06-23] MEDS: Omnipaque 240 MG/ML 50 ML BTL IJ (12:35)
[2024-06-23] MEDS: methylPREDNISolone ACETATE 80 MG/ML VIAL IJ (12:35)
== END 2024-06-23 11:32 | disposition home or self-care (01) ==
LOC: PC 11:32
PROVIDERS: PCP Obstetrics & Gynecology Reproductive Endocrinology; Visit Provider Preventive Medicine Occupational Medicine
DX: M54.50 Low back pain, unspecified (principal); M54.17 Radiculopathy, lumbosacral region
CPT/HCPCS: 62323; 72100; J1010; Q9967

== ENCOUNTER 2024-10-06 13:04 | Outpatient (CLI) | payer MEDICARE, SELFPAY ==
[2024-10-06 13:53] VITALS: BP 152/78; PULSE 51; RESP 20; TEMP 36.7; O2SAT 96
[2024-10-06 14:13] VITALS: PULSE 54; RESP 16
[2024-10-06 14:16] VITALS: BP 172/85; PULSE 53; RESP 17; O2SAT 98
[2024-10-06 14:20] VITALS: PULSE 51; RESP 15; O2SAT 99
--- NOTE | 2024-10-06 14:26 | DI.RAD_ITS ---
Exam(s) XR PAIN CLINIC LUMBAR SP 2V EXAM: XR PAIN CLINIC LUMBAR SP 2V CLINICAL HISTORY: DX: Lumbar Radiculopathy. TECHNIQUE: Fluoroscopy was provided for the referring physician for guidance with performing pain cl inic injection procedure. COMPARISON: No exams were available for comparison FINDINGS: Please see procedure note for details. Fluoro time: 26.4 seconds RADIATION DOSE DELIVERED: Ka,r=9.1 mGy
[2024-10-06 14:27] VITALS: BP 193/85; PULSE 57
[2024-10-06 14:29] VITALS: BP 164/88; PULSE 55
--- NOTE | 2024-10-06 14:30 | PDOC.PAIN ---
Date of service: 10/06/24 Time of Service: 14:31 Pain Managment Procedure Note Procedure Note Procedure Note: PROCEDURE NOTE CAUDAL EPIDURAL STEROID INJECTION Date of Service: October 06, 2024 Patient:Jamari Mckeon? Provider:? Blair Florence DO, MPH Jamari Powers has been referred to the [facility] for caudal epidural steroid injection.? Pre-operative diagnosis: Lumbosacral Radiculopathy, ICD-10 M54.17 Post-operative diagnosis: Same Pre-Procedure Pain: VAS= 8/10. COMMENTS: >3 months of >50% pain relief with his last caudal KYLE from June 2024. Symptoms have returned. Maydawas interviewed and the medical record was reviewed.? There were no medical, pharmacologic, radiographic or other structural contraindications to attempting fluoroscopically guided epidural steroid injection.? Risks and expected side effects as well as potential benefit of the procedure were reviewed with Mayda, and the patient's voiced concerns were addressed.? The printed consent form was signed.? Standard time-out procedure was performed. Mayda was placed in the prone position on the fluoroscopy table and automated blood pressure cuff and pulse oximeter applied.? The skin entry point for entering/approaching the epidural space by a caudal approach through the sacral hiatus ed identified with surgical skin marking.? Following thorough chlorhexidine preparation of the skin and draping and 1% lidocaine infiltration of the skin entry point and subcutaneous tissues, a 17 gauge Touhy needle was placed under fluoroscopic guidance? into the epidural space. Needle tip placement and depth were aided and confirmed by fluoroscopy in the lateral and AP position. There was no paresthesia or return of blood or CSF through the needle. 1 cc of Omnipaque 240 was injected with clear epidural spread confirmed with fluoroscopy. An Arrow 19G radio-opaque epidural catheter was advanced into the epidural space to the L5-S1 level and 2 cc of Omnipaque 240 was injected with clear epidural spread. 80 mg of Depo-Medrol was? injected. There was no unusual discomfort expressed by Jamari. The needle and catheter were then flushed with 1 cc of 1% Lidocaine and they were removed together without difficulty (49 cc of Omnipaque was wasted). Jamari was observed and was without hemodynamic, neurologic, or allergic reactions.? Fluoroscopic images were digitally archived. Jamari's vital signs were stable throughout the procedure and were as recorded in the docflowsheet by the nursing staff.? If given, dosages of intravenous drugs for anxiolysis and analgesia were documented in MAR. Follow up plans and appointments were discussed with Jamari.? Post procedure instruction was given as documented in nursing documentation and having met discharge criteria, Jamari was [facility] from the [facility]. ? COMMENTS: No apparent complications.? Post-procedure pain: VAS= 1/10. If the patient receives at least 50% improvement in pain and/or function for at least 3 months, this procedure can be repeated. I personally completed the entire procedure. BLAIR FLORENCE DO, MPH [employer] - Subspecialty board certification in Pain Medicine [facility] Coding Conscious Sedation used for procedure: No CPT Codes: Inj Spine L/S w/Imaging - [id number] ([id number] ~G) Additional Codes: Date of Service (90972) Date of service: 10/06/24
[2024-10-06] MEDS: Omnipaque 240 MG/ML 50 ML BTL IJ (14:33)
[2024-10-06] MEDS: Nerve Block Tray 1 EACH MC (14:34)
[2024-10-06] MEDS: methylPREDNISolone ACETATE 80 MG/ML VIAL IJ (14:34)
== END 2024-10-06 13:05 | disposition home or self-care (01) ==
PROVIDERS: PCP Nurse Practitioner Adult Health; Visit Provider Preventive Medicine Occupational Medicine
DX: M54.17 Radiculopathy, lumbosacral region (principal); M54.50 Low back pain, unspecified
CPT/HCPCS: 62323; 72100; J1010; Q9967

== ENCOUNTER 2025-05-03 14:15 | Outpatient (CLI) | payer MEDICARE, SELFPAY ==
[2025-05-03 14:32] VITALS: BP 143/63; PULSE 60; RESP 19; TEMP 37; O2SAT 97
[2025-05-03 15:07] VITALS: PULSE 54; O2SAT 92
[2025-05-03 15:08] VITALS: BP 166/74; PULSE 48; PULSE 49; RESP 16; O2SAT 95
[2025-05-03 15:10] VITALS: PULSE 48; RESP 17; O2SAT 96
[2025-05-03 15:16] VITALS: BP 147/67; PULSE 47; RESP 17; O2SAT 96
[2025-05-03 15:20] VITALS: PULSE 47; O2SAT 97
--- NOTE | 2025-05-03 15:20 | PDOC.PAIN ---
Date of service: 05/03/25 Time of Service: 15:20 Pain Managment Procedure Note Procedure Note Procedure Note: PROCEDURE NOTE CAUDAL EPIDURAL STEROID INJECTION Date of Service: May 03, 2025 Patient:Jamari Mckeon? Provider:? Blair Florence DO, MPH Jamari Powers has been referred to the [facility] for caudal epidural steroid injection.? Pre-operative diagnosis: Lumbosacral Radiculopathy, ICD-10 M54.17 Post-operative diagnosis: Same Pre-Procedure Pain: VAS= 8/10. COMMENTS: He had >3 months of >50% pain and functional improvement with his last caudal KYLE on 10/06/24. Maydawas interviewed and the medical record was reviewed.? There were no medical, pharmacologic, radiographic or other structural contraindications to attempting fluoroscopically guided epidural steroid injection.? Risks and expected side effects as well as potential benefit of the procedure were reviewed with Mayda, and the patient's voiced concerns were addressed.? The printed consent form was signed.? Standard time-out procedure was performed. Mayda was placed in the prone position on the fluoroscopy table and automated blood pressure cuff and pulse oximeter applied.? The skin entry point for entering/approaching the epidural space by a caudal approach through the sacral hiatus ed identified with surgical skin marking.? Following thorough chlorhexidine preparation of the skin and draping and 1% lidocaine infiltration of the skin entry point and subcutaneous tissues, a 17 gauge Touhy needle was placed under fluoroscopic guidance? into the epidural space. Needle tip placement and depth were aided and confirmed by fluoroscopy in the lateral and AP position. There was no paresthesia or return of blood or CSF through the needle. 1 cc of Omnipaque 240 was injected with clear epidural spread confirmed with fluoroscopy. An Arrow 19G radio-opaque epidural catheter was advanced into the epidural space to the L5 level and 2 cc of Omnipaque 240 was injected with clear epidural spread. 80 mg of Depo-Medrol was? injected. There was no unusual discomfort expressed by Jamari. The needle and catheter were then flushed with 1 cc of 1% Lidocaine and they were removed together without difficulty (49 cc of Omnipaque was wasted). Jamari was observed and was without hemodynamic, neurologic, or allergic reactions.? Fluoroscopic images were digitally archived. Jamari's vital signs were stable throughout the procedure and were as recorded in the docflowsheet by the nursing staff.? If given, dosages of intravenous drugs for anxiolysis and analgesia were documented in MAR. Follow up plans and appointments were discussed with Jamari.? Post procedure instruction was given as documented in nursing documentation and having met discharge criteria, Jamari was [facility] from the [facility]. ? COMMENTS: No apparent complications.? Post-procedure pain: VAS= 1/10. If the patient receives at least 50% improvement in pain and/or function for at least 3 months, this procedure can be repeated. I personally completed the entire procedure. BLAIR FLORENCE DO, MPH [employer] - Subspecialty board certification in Pain Medicine [facility] Coding Conscious Sedation used for procedure: No CPT Codes: Inj Spine L/S w/Imaging - [id number] ([id number] ~G) Additional Codes: Date of Service () Diagnoses: Lumbosacral radiculopathy
--- NOTE | 2025-05-03 15:23 | DI.RAD_ITS ---
Exam(s) XR PAIN CLINIC LUMBAR SP 2V EXAM: XR PAIN CLINIC LUMBAR SP 2V CLINICAL HISTORY: DX: Lumbar Radiculopathy. TECHNIQUE: Fluoroscopy was provided for the referring physician for guidance with performing pain clinic injection procedure. COMPARISON: No exams were available for comparison FINDINGS: Please see procedure note for details. Fluoro time: 33.7 seconds RADIATION DOSE DELIVERED: Ka,r=12.4 mGy
[2025-05-03] MEDS: Nerve Block Tray 1 EACH MC (15:31)
[2025-05-03] MEDS: methylPREDNISolone ACETATE 40 MG/ML VIAL IJ (15:31)
[2025-05-03] MEDS: Omnipaque 240 MG/ML 50 ML BTL IJ (15:31)
== END 2025-05-03 14:16 | disposition home or self-care (01) ==
LOC: PC 14:15
PROVIDERS: PCP Nurse Practitioner Adult Health; Visit Provider Preventive Medicine Occupational Medicine
DX: M54.50 Low back pain, unspecified (principal); M54.17 Radiculopathy, lumbosacral region
CPT/HCPCS: 62323; 72100; J1010; Q9967